=== PATIENT | female | born 1965 | race American Indian/Alaskan Native ===

== ENCOUNTER 2020-11-30 06:45 | Day surgery (SDC) | payer MEDICARE ==
[~2020-11-30 06:45] MED LIST: MIDAZOLAM 2 MG/2 ML INJ IV NR; SODIUM CHLORIDE 0.9% 1000 ML 1,000 ML IV SCH; ceFAZolin/STERILE WATER 2 GM/20 ML SYRINGE IV NR; fentaNYL 100 MCG/2 ML INJ IV PRN
[2020-11-30] MEDS ORDERED: fentaNYL 100 MCG/2 ML INJ IV PRN (07:26)
[2020-11-30] MEDS ORDERED: HYDROcodone/ACETAMINOPHEN 5-325 MG TAB PO PRN (07:26)
[2020-11-30] MEDS ORDERED: ONDANSETRON 4 MG/2 ML INJ IV PRN (07:26)
--- NOTE | 2020-11-30 07:26 | Anesthesia Consultation ---
Anesthesia Consult and Med Hx Date of service: 11/30/20 - Airway Anesthetic Teeth Evaluation: Poor (lower (multiple missing teeth)), Edentulous (upper) ROM Head & Neck: Adequate Mental/Hyoid Distance: Adequate Mallampati Class: Class III Intubation Access Assessment: Possibly Difficult - Pre-Operative Health Status ASA Pre-Surgery Classification: ASA3 Proposed Anesthetic Plan: General - Pulmonary Hx Smoking: Yes (former smoker, remote hx) Hx Respiratory Symptoms: No - Cardiovascular System Hx Hypertension: No (prior hx but resolved since starting HD) Hx Heart Attack/AMI: No Hx Percutaneous Transluminal Coronary Angioplasty (PTCA): No Hx Cardia Arrhythmia: No - Central Nervous System CVA: No - Gastrointestinal Hx Gastroesophageal Reflux Disease: No - Endocrine Hx End Stage Renal Disease: Yes (last HD 11/29/20) Hx Liver Disease: No Hx Non-Insulin Dependent Diabetes: No (prior hx but off meds since starting HD) Hx Thyroid Disease: No - Additional Comments Anesthesia Medical History Comments: No hx anesthetic complications.
--- NOTE | 2020-11-30 07:26 | Anesthesia Day of Surgery ---
Anesthesia Day of Surgery - Day of Surgery Patient Examined: Yes Patient H&P Reviewed: Yes Patient is NPO: Yes
[2020-11-30] MEDS ORDERED: BUPIVACAINE/PF (0.5%) 5 MG/1 ML 30 ML VIAL INFILTRATI ONE ×2 (07:28→09:22)
[2020-11-30] MEDS ORDERED: HEPARIN 10,000 UNITS/10 ML VIAL ONE (07:28)
[2020-11-30] MEDS ORDERED: SODIUM CHLORIDE 0.9% 500 ML 500 ML ONE (07:29)
[2020-11-30] MEDS ORDERED: LIDOCAINE MPF (2%) 20 MG/1 ML VIAL 5 ML ONE (07:36)
[2020-11-30] MEDS ORDERED: ONDANSETRON 4 MG/2 ML INJ ONE (07:36)
[2020-11-30] MEDS ORDERED: propofoL 200 MG/20 ML VIAL IV ONE ×2 (07:37→08:47)
[2020-11-30] MEDS ORDERED: HYDROmorphone 1 MG/1 ML INJ ONE (07:37)
[2020-11-30 07:51] LABS: Hematocrit 34.2 % (30.3-42.9); Hemoglobin 11.3 gm/dl (10.1-14.3); Mean Corpuscular HGB Conc 33 % (30-34); Mean Corpuscular Volume 88 fl (79-97); Platelet Count 172 K/mm3 (140-440); Red Blood Count 3.88 M/mm3 (3.65-5.03); Red Cell Distribution Width 14.6 % (13.2-15.2)
[2020-11-30 08:07] LABS: Calcium 9.6 mg/dL (8.4-10.2)
[2020-11-30] MEDS ORDERED: HEPARIN 10,000 UNITS/10 ML VIAL IR ONE (09:24)
[2020-11-30] MEDS ORDERED: SODIUM CHLORIDE 0.9% 500 ML IVPB IRRIGATION ONE (09:24)
[2020-11-30] MEDS ORDERED: SODIUM CHLORIDE 0.9% IRR 1,500 ML BOTTLE IR ONE (09:25)
[2020-11-30] MEDS ORDERED: dexAMETHasone 20 MG/5 ML VIAL ONE (09:49)
[2020-11-30] MEDS ORDERED: PHENYLEPHRINE/NS 1,000 MCG/10 ML SYRINGE (OR USE) IV ONE ×4 (10:40)
--- NOTE | 2020-11-30 10:49 | Short Stay Summary ---
Short Stay Documentation Date of service: 11/30/20 Narrative H&P: See H&P - History H&P: obtained from office - Allergies and Medications Current Medications: Allergies No Known Allergies Allergy (Verified 11/21/20 16:09) Home Medications Medication Instructions Recorded Confirmed Last Taken Type Folic Acid/Vit B Complex and C 800 mcg PO DAILY 11/21/20 11/21/20 Unknown History [Dialyvite 800 Chewable Wafer] Sevelamer Carbonate [Renvela] 1,600 mg PO TIDAC 11/21/20 11/21/20 Unknown History Active Medications Hydrocodone Bitart/Acetaminophen (Hydrocodone/Acetaminophen 5-325 Mg Tab) 2 each PO ONCE PRN PRN Reason: Pain, Moderate (4-6) Cefazolin Sodium (Cefazolin/Sterile Water 2 Gm/20 Ml Syringe) 2 gm IV PREOP NR Stop: 11/30/20 23:00 Fentanyl (Fentanyl 100 Mcg/2 Ml Inj) 50 mcg IV Q5MIN PRN PRN Reason: Pain , Severe (7-10) Stop: 11/30/20 23:00 Sodium Chloride (Nacl 0.9% 1000 Ml) 1,000 mls @ 42 mls/hr IV DIRECT BRINDA Stop: 11/30/20 23:59 Midazolam HCl (Midazolam 2 Mg/2 Ml Inj) 2 mg IV PREOP NR Stop: 11/30/20 23:59 Ondansetron HCl (Ondansetron 4 Mg/2 Ml Inj) 4 mg IV ONCE PRN PRN Reason: Nausea And Vomiting Stop: 11/30/20 20:00 - Brief post op/procedure progress note Date of procedure: 11/30/20 Pre-op diagnosis: End-Stage Renal Disease Post-op diagnosis: same Procedure: Creation of Right Brachiocephalic Arteriovenous Fistula Anesthesia: GETA Surgeon: ILIR WATTS Estimated blood loss: minimal Pathology: none Condition: stable - Disposition Condition at discharge: Good Disposition: [id number]-01 TO HOME OR SELFCARE Short Stay Discharge Plan Activity: other (No heavy lifting with right arm for 2 weeks.) Wound: open to air, keep clean and dry, other (Okay to wash the right arm wound with soap and water but do not soak in water for 2 weeks.) Follow up with: ILIR WATTS MD [Staff Physician] - 14 Days Prescriptions: HYDROcodone/APAP 5-325 [Grahn 5/325] 1 each PO Q4HR PRN #30 tablet PRN Reason: Pain
--- NOTE | 2020-11-30 10:52 | Operative Report ---
Operative Report Operative Report: Date of procedure: 11/30/2020 Pre-operative diagnosis: End-Stage Renal Disease Post-operative diagnosis: End-Stage Renal Disease Procedure(s): Creation of Right brachial Artery to Cephalic Vein Arteriovenous Fistula Surgeon: Lorne Love MD Test Deskman: None Anesthesia: General Endotracheal Anesthesia EBL: Minimal Counts: Correct Complications: None Condition: Stable Findings: Successful creation of right brachiocephalic arteriovenous fistula with palpable thrill and palpable radial pulse at the completion of the case. Specimen: None Indications: The patient is a 55-year-old female with a history of end-stage renal disease who is currently on hemodialysis through a left internal jugular permacath. She had a previous creation of a right brachial artery to right axillary vein arteriovenous graft created by an outside surgeon however the graft never functioned. She had an ultrasound performed that demonstrated she had an adequate cephalic vein for creation of an arteriovenous fistula so she was offered creation of an arteriovenous fistula. She was given the risk, benefits, and alternative procedures and consented to procedure. Description of Procedure: The patient was brought to the operating room and laid in supine position. After timeout was performed her right arm was prepped and draped in normal sterile fashion. A transverse incision was then made and carried down to the cephalic vein using sharp dissection. The vein was dissected out both proximally and distally and suture ligated and divided distally. I flushed the vein with heparinized saline and flow was controlled with a bulldog clamp. I then dissected out the brachial artery, through this incision circumferentially, both proximal and distal and controlled the artery with vessel loops. I systemically heparinized the patient with 3000 units of heparin IV and used angled DeBakey clamps to control flow through the artery. I created an arteriotomy using an 11 blade and [place] scissors. I created an end to side anastomosis between the cephalic vein and brachial artery using a 6-0 Prolene in running fashion. Prior to completing the anastomosis I flashed the artery both proximally and distally and then flushed the anastomosis with heparinized saline to remove any debris. I then completed the anastomosis and removed all clamps allowing flow into the fistula which had an adequate thrill. I achieved hemostasis with a combination of Anne and cautery. Once hemostasis had been achieved I anesthetized the wound with 0.5% Marcaine and I closed the wound in 2 layers using a 3-0 Vicryl in a running fashion in the deep dermal layer and a 4- 0 Monocryl in running fashion in the subcuticular layer. I then dressed the wound with Dermabond. The patient tolerated the procedure well. All sponge, needle, and instrument counts were correct. The patient was taken to the recovery area in stable condition.
[2020-11-30 12:03] VITALS: BP 143/75
[2020-11-30] MEDS ORDERED: HEPARIN 10,000 UNITS/10 ML VIAL IV ONE (12:30)
[2020-11-30] MEDS ORDERED: HEPARIN 10,000 UNIT/1 ML VIAL ONE (12:30)
--- NOTE | 2020-11-30 16:07 | Post Anesthesia Evaluation ---
- Post Anesthesia Evaluation Patient Participated: Yes Airway Patent: Yes Stable Respiratory Function: Yes Nausea/Vomiting: No Temp > 96.8F: Yes Pain Manageable: Yes Adequeate Hydration: Yes Anesthesia Complications: No
== END 2020-11-30 13:10 | disposition home or self-care (01) ==
LOC: OR 06:45
PROVIDERS: ATTEND Surgery Vascular Surgery
DX: I12.0 Hypertensive chronic kidney disease with stage 5 chronic kidney disease or end stage renal disease (principal); E11.22 Type 2 diabetes mellitus with diabetic chronic kidney disease; N18.6 End stage renal disease; K21.9 Gastro-esophageal reflux disease without esophagitis; Z90.710 Acquired absence of both cervix and uterus; Z98.891 History of uterine scar from previous surgery; Z87.440 Personal history of urinary (tract) infections; Z98.890 Other specified postprocedural states; Z87.891 Personal history of nicotine dependence; Z79.899 Other long term (current) drug therapy
CPT/HCPCS: 36415; 36821; 80048; 82962; 85027; C1757; J0690; J1100; J1170; J1644; J2370; J2405; J2704; J7030; J7040